=== PATIENT | female | born 1960 | race Caucasian/White ===

== ENCOUNTER 2017-05-05 09:34 | Day surgery (SDC) | payer BC, OTHER ==
[2017-05-05] MEDS ORDERED: MIDAZOLAM HCL 5 MG/5 ML VIAL ONE ×2 (09:48→09:49)
[2017-05-05] MEDS ORDERED: MEPERIDINE HCL/PF 100 MG/ML AMP ONE (09:48)
[2017-05-05] MEDS ORDERED: SIMETHICONE 40 MG/0.6 ML ML ONE (09:48)
[2017-05-05 13:37] VITALS: BP_SYST 136
== END 2017-05-05 12:10 | disposition home or self-care (01) ==
LOC: SDS 09:34
PROVIDERS: ATTEND Internal Medicine Gastroenterology
DX: K63.5 Polyp of colon (principal); E11.9 Type 2 diabetes mellitus without complications; I21.3 ST elevation (STEMI) myocardial infarction of unspecified site; E78.5 Hyperlipidemia, unspecified; I10 Essential (primary) hypertension; M32.9 Systemic lupus erythematosus, unspecified; Z79.899 Other long term (current) drug therapy; Z79.84 Long term (current) use of oral hypoglycemic drugs; Z90.49 Acquired absence of other specified parts of digestive tract; K64.9 Unspecified hemorrhoids; Z85.038 Personal history of other malignant neoplasm of large intestine; M79.7 Fibromyalgia; Z85.3 Personal history of malignant neoplasm of breast
CPT/HCPCS: 45380; 82962; 88305; J2175; J2250